=== PATIENT | female | born 1995 | race Caucasian/White ===

== ENCOUNTER 2018-09-27 02:02 | Emergency (ER) | payer OTHER ==
[2018-09-27 02:56] VITALS: BMI 23.8
--- NOTE | 2018-09-27 02:59 | PDOC ---
History of Present Illness - General Chief Complaint: Chest Pain Stated Complaint: CHEST PAIN, ? WEEKS Time Seen by Provider: 09/27/18 02:52 - History of Present Illness Initial Comments: 09/27/18 03:10 The patient is a 22 year old female at unknown weeks gestation with a PMH of PCOS who presents with chest pain. Patient states chest pain is substernal, aching, non-radiating and intermittent. Pain has been occurring intermittently for 5+ years and is often associated with anxiety or depression. Denies any associated lightheadedness, palpations, nausea, diaphoresis. No prior evaluation by cardiology. No family cardiac history. No evaluation to date. LMP in June 2018. The patient denies abdominal pain, diarrhea/constipation, dysuria/hematuria, numbness/tingling, headache, cough, sore throat. NKDA Surgical: none reported Social: denies toxic habits PMD: Dr. Marina Vu M.D. Past History - Past Medical History Allergies/Adverse Reactions: Allergies Allergy/AdvReac Type Severity Reaction Status Date / Time No Known Allergies Allergy Verified 09/27/18 03:15 - Suicide/Smoking/Psychosocial Hx Smoking History: Never smoked Review of Systems - Review of Systems Constitutional: No: Chills, Fever HEENTM: No: Blurred Vision, Double Vision Respiratory: No: Cough, Shortness of Breath Cardiac (ROS): No: Chest Pain, Lightheadedness, Palpitations ABD/GI: No: Constipated, Diarrhea, Nausea, Vomiting *Physical Exam - Vital Signs Last Vital Signs Temp Pulse Resp BP Pulse Ox 97.9 F 69 19 107/60 95 09/27/18 02:15 09/27/18 02:15 09/27/18 02:15 09/27/18 02:15 09/27/18 02:15 - Physical Exam General Appearance: Yes: Nourished, Appropriately Dressed HEENT: positive: Normal Voice, Hearing Grossly Normal Neck: positive: Trachea midline, Supple Respiratory/Chest: positive: Lungs Clear, Normal Breath Sounds, Other ( reproducible anterior chest wall pain) Cardiovascular: positive: S1, S2 Gastrointestinal/Abdominal: positive: Normal Bowel Sounds, Soft Musculoskeletal: negative: CVA Tenderness (R), CVA Tenderness (L) Extremity: positive: Normal Capillary Refill, Normal Inspection Integumentary: positive: Normal Color, Dry, Warm ED Treatment Course - LABORATORY CBC & Chemistry Diagram: 09/27/18 03:40 09/27/18 03:40 Medical Decision Making - Medical Decision Making 09/27/18 03:41 22 year old female at unknown gestation presents with chest pain. Intermittent for 5+ years. Low clinical suspicion for ACS. As patient is and unsure of gestational age will obtain quantatitive HCG, basic labs, and UA ( check for proteinuria). Bedside U/S. Reassess. 09/27/18 04:22 Beside U/S shows IUP WBC 10.9 - likely reactive leukocytosis CMP, B-HCG pending Tylenol IV 09/27/18 05:00 No proteinuria No electrolyte derangement B-HCG pending 09/27/18 05:00 Patient reassessed @ bedside Symptomatically improved 09/27/18 05:22 B-HCG 72,038 09/27/18 05:28 Reassessed patient, comfortable with discharge home. Will refer to OB-Software Validation Technician to establish care. Discharged home w/mother, given return precaution, OB- Software Validation Technician referral and instructions for supportive care. 09/27/18 06:22 09/27/18 06:22 *DC/Admit/Observation/Transfer Diagnosis at time of Disposition: Chest pain - Discharge Dispostion Disposition: HOME Condition at time of disposition: Good Decision to Admit order: No - Referrals Referrals: Marina Vu [Primary Care Provider] - Dominique Olvera MD [Staff Physician] - - Patient Instructions Printed Discharge Instructions: Medications and , Managing Symptoms of , DI for Atypical Chest Pain Additional Instructions: Please make an appointment with the Super[facility] (referral provided) for further evaluation of your You can take Tylenol (up to 4000 mg daily) for your pain. Return to the Emergency Department for any new/worsening/concerning symptoms. - Post Discharge Activity
[2018-09-27 03:58] LABS: BASO % 0.6 % (0-2.0); HEMATOCRIT 40.6 % (32.4-45.2); HEMOGLOBIN 13.5 GM/dL (10.7-15.3); LYMPH % 19.6 % (8-40); MCH 28.8 pg (25.7-33.7); MCHC 33.4 g/dl (32.0-36.0); MEAN CELL VOLUME 86.4 fl (80-96); MEAN PLT VOLUME 8.8 fl (7.5-11.1); MONO % 6.2 % (3.8-10.2); NEUT % 71.6 % (42.8-82.8); PLATELET COUNT 311 K/MM3 (134-434); RBC 4.69 M/mm3 (3.60-5.2); RDW 13.9 % (11.6-15.6); WHITE BLOOD COUNT 10.9 K/mm3 (4.0-10.0)
[2018-09-27] MEDS ORDERED: ACETAMINOPHEN 1000 MG/100 ML VIAL (NON FORMULARY) IVPB ONE (04:21)
[2018-09-27 04:45] LABS: ALK PHOS 82 U/L (45-117); ANION GAP 8 MMOL/L (8-16); BILIRUBIN,TOTAL 0.5 mg/dL (0.2-1); BLOOD UREA NITROGEN 9 mg/dL (7-18); CALCIUM 9.3 mg/dL (8.5-10.1); CHLORIDE 102 mmol/L (98-107); CO2 26 mmol/L (21-32); CREATININE 0.5 mg/dL (0.55-1.3); GLUCOSE,RANDOM 81 mg/dL (74-106); POTASSIUM 4.7 mmol/L (3.5-5.1); SGOT/AST 25 U/L (15-37); SGPT/ALT 22 U/L (13-61); SODIUM 136 mmol/L (136-145); TOT PROT 8.5 g/dl (6.4-8.2)
[2018-09-27] MEDS ORDERED: ACETAMINOPHEN INJECTION 100 ML IVPB ONE (04:54)
[2018-09-27 04:59] LABS: EPI CELLS MODERATE /HPF (FEW); URINE BACTERIA RARE /hpf (NONE SEEN); URINE MUCUS RARE
[2018-09-27 05:51] VITALS: BP 99/48; PULSE 74; TEMP 98.5
--- NOTE | 2018-09-27 05:51 | PDOC ---
Attending Attestation - Resident Resident Name: Lizeth Hensley - HPI HPI: 09/27/18 05:49 see mdm - Physicial Exam PE: 09/27/18 05:49 see mdm - Medical Decision Making 09/27/18 05:49 22F , unknown gestation with acute exacerbation of chronic cp, reproducible, not-pleuritic, no sob, hemoptysis, palpitations acs, pe less likely, consider msk px analgesia re-eval likely discharge
[2018-09-27 12:31] LABS: PH,URINE 8.5 (5.0-8.0); URINE APPEARANCE Clear; URINE BILIRUBIN Negative (<2.0 mg/dL); URINE COLOR Yellow; URINE GLUCOSE (UA) Negative (NEGATIVE); URINE KETONE Negative (NEGATIVE); URINE LEUK ESTERASE Negative (NEGATIVE); URINE NITRITE Negative (NEGATIVE); URINE PROTEIN Negative (NEGATIVE); URINE UROBILINOGEN 0.2 mg/dL (0.2-1.0)
--- NOTE | 2018-09-28 13:51 | EKG ---
Test Reason : Blood Pressure : / mmHG Vent. Rate : 069 BPM Atrial Rate : 069 BPM P-R Int : 148 ms QRS Dur : 072 ms QT Int : 382 ms P-R-T Axes : 038 037 044 degrees QTc Int : 409 ms SINUS RHYTHM WITH MARKED SINUS ARRHYTHMIA NO PREVIOUS ECGS AVAILABLE Confirmed by DAVID MACKENZIE MD ([id number]) on 09/28/2018 1:50:59 PM Referred By: Confirmed By:DAVID MACKENZIE MD
== END 2018-09-27 05:52 | disposition home or self-care (01) ==
LOC: JER 02:02
PROC: 3E033NZ Introduction of Analgesics, Hypnotics, Sedatives into Peripheral Vein, Percutaneous Approach (ICD-10-PCS; principal; 2018-09-27)
PROC: BY49ZZZ Ultrasonography of First Trimester, Single Fetus (ICD-10-PCS; 2018-09-27)
DX: Z3A.00 Weeks of gestation of pregnancy not specified (principal)
CPT/HCPCS: 36415; 80053; 81003; 81015; 84702; 85025; 86850; 86900; 86901; 93005; 93010; 99281-25; J0131

== ENCOUNTER 2018-11-21 19:00 | Emergency (ER) | payer OTHER ==
--- NOTE | 2018-11-21 19:08 | PDOC ---
Rapid Medical Evaluation Time Seen by Provider: 11/21/18 19:06 Medical Evaluation: Allergies Allergy/AdvReac Type Severity Reaction Status Date / Time No Known Allergies Allergy Verified 09/27/18 03:15 11/21/18 19:06 I have performed a brief in-person evaluation of this patient. The patient presents with a chief complaint of: left breast ecchymosis lower abdominal cramping 19wks Pertinent physical exam findings: Gravid abdomen. +BS. Non tender I have ordered the following: labs, urine The patient will proceed to the ED for further evaluation. Discharge Disposition - Diagnosis Abdominal cramping affecting - Referrals - Patient Instructions - Post Discharge Activity
[2018-11-21 19:10] VITALS: BP 131/68; PULSE 93; TEMP 98.2; BMI 24.7
[2018-11-21 20:27] LABS: BASO % 0.4 % (0-2.0); EOS % 1.1 % (0-4.5); HEMATOCRIT 34.2 % (32.4-45.2); HEMOGLOBIN 11.9 GM/dL (10.7-15.3); MCHC 34.8 g/dl (32.0-36.0); MEAN CELL VOLUME 86.2 fl (80-96); MEAN PLT VOLUME 8.1 fl (7.5-11.1); MONO % 7.3 % (3.8-10.2); NEUT % 68.2 % (42.8-82.8); PLATELET COUNT 255 K/MM3 (134-434); RBC 3.96 M/mm3 (3.60-5.2); RDW 13.4 % (11.6-15.6); WHITE BLOOD COUNT 11.1 K/mm3 (4.0-10.0)
[2018-11-21 21:25] LABS: ANION GAP 7 MMOL/L (8-16); BLOOD UREA NITROGEN 8 mg/dL (7-18); CALCIUM 8.9 mg/dL (8.5-10.1); CHLORIDE 109 mmol/L (98-107); CO2 23 mmol/L (21-32); CREATININE 0.6 mg/dL (0.55-1.3); GLUCOSE,RANDOM 128 mg/dL (74-106); POTASSIUM 4.1 mmol/L (3.5-5.1); SODIUM 139 mmol/L (136-145)
[2018-11-21 21:43] LABS: URINE APPEARANCE CLEAR; URINE BILIRUBIN NEGATIVE (<2.0 mg/dL); URINE COLOR LTYELLOW; URINE GLUCOSE (UA) 1+ (NEGATIVE); URINE KETONE NEGATIVE (NEGATIVE); URINE LEUK ESTERASE NEGATIVE (NEGATIVE); URINE NITRITE NEGATIVE (NEGATIVE); URINE PROTEIN NEGATIVE (NEGATIVE); URINE UROBILINOGEN NEGATIVE mg/dL (0.2-1.0)
--- NOTE | 2018-11-21 22:12 | PDOC ---
History of Present Illness - General Chief Complaint: Pain, Acute Stated Complaint: ABDOMINAL/BREAST PAIN/19 WKS Time Seen by Provider: 11/21/18 19:06 - History of Present Illness Initial Comments: 11/21/18 22:10 22-year-old 19 week gravid female presents for 1 day of abdominal cramping no discharge Past History - Past Medical History Allergies/Adverse Reactions: Allergies Allergy/AdvReac Type Severity Reaction Status Date / Time No Known Allergies Allergy Verified 09/27/18 03:15 Home Medications: Ambulatory Orders NK [No Known Home Medication] 11/21/18 Prenat 115/Iron Fum/Folic/Dss [ 19 Tablet] 1 each PO DAILY 11/21/18 COPD: No - Immunization History Immunization Up to Date: Yes - Suicide/Smoking/Psychosocial Hx Smoking History: Never smoked Hx Alcohol Use: No Drug/Substance Use Hx: No Review of Systems - Review of Systems ABD/GI: Yes: Abdominal cramping *Physical Exam - Vital Signs Last Vital Signs Temp Pulse Resp BP Pulse Ox 98.2 F 93 H 16 131/68 97 11/21/18 19:08 11/21/18 19:08 11/21/18 19:08 11/21/18 19:08 11/21/18 19:08 - Physical Exam Comments: 11/21/18 22:11 HEAD: NC/AT EYES: Conjuntiva clear Ears: Canals and TM's normal NOSE: No d/c THROAT: Moist mucous membrances, oral pharanx clear, uvula midline NECK: Supple without adenopathy CARDIAC: S1 S2 LUNGS: CTA Full and Equal breath sounds ABDOMEN: Soft NT ND gravid uterus MS: Full ROM in all joints without edema NEUROLOGIC: No gross sensory or motor deficits, NVID SKIN: Normal color and temperature no lesions or rashes Moderate Sedation - Procedure Monitoring Vital Signs: Procedure Monitoring Vital Signs Temperature 98.2 F 11/21/18 19:08 Pulse Rate 93 H 11/21/18 19:08 Respiratory Rate 16 11/21/18 19:08 Blood Pressure 131/68 11/21/18 19:08 O2 Sat by Pulse Oximetry (%) 97 11/21/18 19:08 ED Treatment Course - LABORATORY CBC & Chemistry Diagram: 11/21/18 20:15 11/21/18 20:15 - ADDITIONAL ORDERS Additional order review: Laboratory Results 11/21/18 11/21/18 21:25 20:15 Sodium 139 Potassium 4.1 Chloride 109 H Carbon Dioxide 23 Anion Gap 7 L BUN 8 Creatinine 0.6 Creat Clearance w eGFR > 60 Random Glucose 128 H Calcium 8.9 Beta HCG, Quant 37887.0 Urine Color Ltyellow Urine Appearance Clear Urine pH 6.0 D Ur Specific [place] 1.015 Urine Protein Negative Urine Glucose (UA) 1+ H Urine Ketones Negative Urine Blood Negative Urine Nitrite Negative Urine Bilirubin Negative Urine Urobilinogen Negative Ur Leukocyte Esterase Negative 11/21/18 20:15 RBC 3.96 MCV 86.2 MCHC 34.8 RDW 13.4 MPV 8.1 Neutrophils % 68.2 Lymphocytes % 23.0 Monocytes % 7.3 Eosinophils % 1.1 Basophils % 0.4 Medical Decision Making - Medical Decision Making 11/21/18 22:11 We'll transfer up to labor and delivery for monitoring and further evaluation and treatment options *DC/Admit/Observation/Transfer Diagnosis at time of Disposition: Abdominal cramping affecting - Referrals - Patient Instructions - Post Discharge Activity
== END 2018-11-21 22:26 | disposition home or self-care (01) ==
LOC: JERFT 19:00
DX: O26.892 Other specified pregnancy related conditions, second trimester (principal); Z3A.19 19 weeks gestation of pregnancy; R10.2 Pelvic and perineal pain
CPT/HCPCS: 36415; 80048; 81003; 84702; 85025; 87086; 87186; 99281-25

== ENCOUNTER 2019-02-18 07:20 | Inpatient (IN) | payer OTHER ==
[2019-02-18] MEDS ORDERED: ACETAMINOPHEN 1000 MG/100 ML VIAL (NON FORMULARY) IVPB ONE (07:47)
[2019-02-18 07:56] VITALS: BMI 29.0
[2019-02-18] MEDS ORDERED: ACETAMINOPHEN INJECTION 100 ML IVPB ONE (07:57)
--- NOTE | 2019-02-18 08:21 | PDOC ---
History of Present Illness - General Chief Complaint: Pain, Acute Stated Complaint: ABDOMINAL PAIN Time Seen by Provider: 02/18/19 07:35 History Source: Patient Exam Limitations: No Limitations - History of Present Illness Initial Comments: 02/18/19 08:15 23 yo 30 weeks female pmh PCOS and recently diagnosed gestational diabetes (02/12/2019, RN POOL followed at [address] [place]) Presents to the ED from L&D with sudden onset suprapubic abdominal pain that began at 11 pm last night. L&D US shows 30 week, 4 day gestation, FHR 144, with short cervix 1.8 cm noted and UA shows 2+ LE with WBCs, trace proteins and no blood. Pt states the pain started suddenly last night, described as cramping, non radiating and constant. Admits to new urinary frequency but denies pain or order with urination, vaginal discharge, changes in bowel habits, new back pain, F/C/N/V, PARRY, CP or SOB Past History - Past Medical History Allergies/Adverse Reactions: Allergies Allergy/AdvReac Type Severity Reaction Status Date / Time No Known Allergies Allergy Verified 02/18/19 03:33 Home Medications: Ambulatory Orders Prenat 115/Iron Fum/Folic/Dss [ 19 Tablet] 1 each PO DAILY 11/21/18 Ferrous Sulfate [Feosol] 325 mg PO DAILY 02/18/19 Progesterone, Micronized [Progesterone] 200 mg VG DAILY 02/18/19 COPD: No Other medical history: PCOS - Immunization History Immunization Up to Date: Yes - Suicide/Smoking/Psychosocial Hx Smoking History: Unknown if ever smoked Hx Alcohol Use: No Drug/Substance Use Hx: No Review of Systems - Review of Systems Constitutional: No: Chills, Fever Respiratory: No: Shortness of Breath Cardiac (ROS): No: Chest Pain ABD/GI: No: Constipated, Diarrhea, Nausea, Vomiting : Yes: Frequency, Flank Pain. No: Burning, Dysuria, Discharge, Hematuria, Incontinence Musculoskeletal: No: Back Pain Neurological: No: Headache, Numbness, Tingling, Weakness *Physical Exam - Vital Signs Last Vital Signs Temp Pulse Resp BP Pulse Ox 98.0 F 100 H 17 111/76 100 02/18/19 07:41 02/18/19 07:41 02/18/19 07:41 02/18/19 07:41 02/18/19 07:41 - Physical Exam General Appearance: Yes: Nourished, Appropriately Dressed, Moderate Distress ( due to lower quadrant abdominal pain) HEENT: positive: EOMI, ISABEL, Normal Voice, Hearing Grossly Normal Neck: positive: Supple. negative: Carotid bruit, Tender midline Respiratory/Chest: positive: Lungs Clear, Normal Breath Sounds, Accessory Muscle Use. negative: Chest Tender, Respiratory Distress Cardiovascular: positive: Regular Rhythm, Regular Rate, S1, S2. negative: Edema , JVD, Murmur Vascular Pulses: Dorsalis-Pedis (R): 4+, Doralis-Pedis (L): 4+ Female Pelvic Exam: positive: other (deferred to OB) Gastrointestinal/Abdominal: positive: Normal Bowel Sounds, Soft, Tenderness ( bilateral lower quadrant, worse on the right), Other (rovsings positive). negative: Pulsatile Mass, Distended, Guarding Musculoskeletal: positive: Normal Inspection, CVA Tenderness (right) Extremity: positive: Normal Capillary Refill, Normal Inspection, Normal Range of Motion Integumentary: positive: Normal Color, Dry, Warm Neurologic: positive: Fully Oriented, Alert, Normal Mood/Affect, Normal Response , Motor Strength 5/5. negative: Numbness, Sensory Deficit, Confused, Disoriented ED Treatment Course - LABORATORY CBC & Chemistry Diagram: 02/18/19 07:06 02/18/19 07:06 - Medications Given in the ED: ED Medications Discontinued Medications Generic Name Dose Route Start Last Admin Trade Name Freq PRN Reason Stop Dose Admin Acetaminophen 1,000 mg 02/18/19 07:47 02/18/19 08:03 Ofirmev Injection - IVPB 02/18/19 07:48 1,000 mg ONCE ONE Administration Medical Decision Making - Medical Decision Making 02/18/19 08:15 23 yo 30 weeks female pmh PCOS and recently diagnosed gestational diabetes (02/12/2019, RN POOL followed at [facility]) Presents to the ED from L&D with sudden onset suprapubic abdominal pain that began at 11 pm last night. L&D US shows 30 week, 4 day gestation, FHR 144, with short cervix 1.8 cm noted and UA shows 2+ LE with WBCs, trace proteins and no blood. Pt states the pain started suddenly last night, described as cramping, non radiating and constant. Admits to new urinary frequency but denies pain or order with urination, vaginal discharge, changes in bowel habits, new back pain, F/C/N/V, PARRY, CP or SOB Vitals WNL AOX3, pt is in moderate distress due to pain and given IV tylenol DDX INLT: renal stone, appendicitis, pyelo, UTI/cystitis, labor CBC shows elevated WBC over 19, blood work otherwise normal abdominal US done to attempt to r/o appendicitis however appendix not visualized. Of note, pt found to have gallstones but due to location of pain, very unlikely to be the etiology of pain today MRI ordered and approved OB and Gen Surg consulted Dr. Boogie from OB assess pt, states if MRI shows appendicitis or other surgical concern, Gen Surg will need to be involved, otherwise, pt will be admitted to OB unit and treated for UTI and pain MRI appendix was difficult to visualize but no signs of appendicitis visualized Dr. Manriquez is now clinic receptionist for OB, case discussed and agrees to have pt admitted to OB unit. *DC/Admit/Observation/Transfer Diagnosis at time of Disposition: Pain UTI (urinary tract infection) Qualifiers: Urinary tract infection type: acute cystitis Hematuria presence: without hematuria Qualified Code(s): N30.00 - Acute cystitis without hematuria - Discharge Dispostion Disposition: TRANSFER ACUTE CARE/OTHER HOSP Condition at time of disposition: Stable Decision to Admit order: Yes - Referrals - Patient Instructions - Post Discharge Activity
[2019-02-18 08:27] LABS: BASO % 0.5 % (0-2.0); EOS % 0.1 % (0-4.5); HEMATOCRIT 36.7 % (32.4-45.2); HEMOGLOBIN 12.1 GM/dL (10.7-15.3); LYMPH % 8.5 % (8-40); MCHC 32.9 g/dl (32.0-36.0); MEAN CELL VOLUME 87.9 fl (80-96); MEAN PLT VOLUME 8.3 fl (7.5-11.1); NEUT % 83.9 % (42.8-82.8); PLATELET COUNT 220 K/MM3 (134-434); RBC 4.17 M/mm3 (3.60-5.2); RDW 13.9 % (11.6-15.6); WHITE BLOOD COUNT 19.6 K/mm3 (4.0-10.0)
[2019-02-18 08:50] LABS: INR 1.02 (0.83-1.09)
[2019-02-18 08:53] LABS: ACTIVATED PTT 28.2 SECONDS (25.2-36.5)
[2019-02-18 09:29] LABS: ALBUMIN 2.5 g/dl (3.4-5.0); ALK PHOS 147 U/L (45-117); ANION GAP 8 MMOL/L (8-16); BILIRUBIN,TOTAL 0.5 mg/dL (0.2-1); BLOOD UREA NITROGEN 5 mg/dL (7-18); CALCIUM 8.5 mg/dL (8.5-10.1); CHLORIDE 109 mmol/L (98-107); CO2 21 mmol/L (21-32); CREATININE 0.5 mg/dL (0.55-1.3); GLUCOSE,RANDOM 94 mg/dL (74-106); LIPASE 88 U/L (73-393); POTASSIUM 3.8 mmol/L (3.5-5.1); SGOT/AST 13 U/L (15-37); SGPT/ALT 17 U/L (13-61); SODIUM 138 mmol/L (136-145); TOT PROT 6.3 g/dl (6.4-8.2)
[2019-02-18] MEDS ORDERED: CEFTRIAXONE 1 GM in DEXTROSE 5%-WATER - 100 ML IVPB ONE (09:33)
--- NOTE | 2019-02-18 09:47 | PDOC ---
Attending Attestation - Resident Resident Name: Cruzito Morrison - ED Attending Attestation I have performed the following: I have examined & evaluated the patient, The case was reviewed & discussed with the resident, I agree w/resident's findings & plan - HPI HPI: 02/18/19 09:42 Healthy 23-year-old female third trimester gestation at about 30 weeks resents with suprapubic discomfort that began at 11 PM last night. Otherwise uneventful except for borderline gestational diabetes, began having mild suprapubic discomfort last night that has been constant since onset, but progressive in severity. no n/v/diarrhea, + new urinary urgency without dysuria. no cramping/bleeding. Seen at L+D prior to ED eval and cleared but sent for further workup of sxs. U/ S upstairs showed normal IUP at 30wks 4 days. - Physicial Exam PE: 02/18/19 09:45 Afebrile. Mild to moderate distress secondary to localized suprapubic pain Abdomen is gravid, soft and nondistended. Tender with guarding in the suprapubic region and right middle/right lower abdomen, positive rebound. Pelvic deferred and performed on L&D - Medical Decision Making 02/18/19 09:46 23-year-old female 30 weeks gestation with progressive lower abdominal pain and some peritoneal findings on examination. Cleared from OB perspective, ultrasound is within normal limits Urinalysis sent from upstairs showed 41 white blood cells and positive leuk esterase, suggestive of UTI. Pain and exam seem out of proportion to an early cystitis. Question superimposed kidney stone. Consider appendicitis or colitis Check labs, will need more imaging. Start with renal/appendix ultrasound, may need MRI. Heart Score/ECG Review #1 ECG reviewed & interpreted by me at: 08:08 General ECG Interpretation: Sinus Rhythm, Normal Rate (104), Normal Intervals ( qtc 433), No acute ischemic changes
--- NOTE | 2019-02-18 11:13 | EKG ---
Test Reason : Blood Pressure : / mmHG Vent. Rate : 104 BPM Atrial Rate : 104 BPM P-R Int : 132 ms QRS Dur : 068 ms QT Int : 330 ms P-R-T Axes : 022 004 018 degrees QTc Int : 433 ms SINUS TACHYCARDIA MINIMAL VOLTAGE CRITERIA FOR LVH, MAY BE NORMAL VARIANT BORDERLINE ECG WHEN COMPARED WITH ECG OF 27-SEP-2018 02:16, VENT. RATE HAS INCREASED BY 35 BPM Confirmed by JACKIE RANGEL, JEROD ([id number]) on 02/18/2019 11:12:38 AM Referred By: Confirmed By:JEROD MEJIA MD
[2019-02-18] MEDS ORDERED: CEFTRIAXONE 1 GM/50 ML BAG ONE (11:46)
--- NOTE | 2019-02-18 14:35 | HP ---
Past Medical History - Admission Chief Complaint: Lower abdominal pain History of Present Illness: 23yo @ 30.4wks who presents with one day of intense lower abdominal pain and pressure. No VB/LOF. Denies menstrual cramping. No fevers/chills. No dysuria. No nausea/vomiting. Pain started at 11pm, no relief with Tylenol. Per pt, recently diagnosed with GDM. Seen on L&D Triage at 3AM today, cleared and sent to the ER for further evaluation ER labs notable for elevated WBC 19 with left shift, no bandemia. Normal CMP. UA with 2+ leuks, 41 WBC. Normal OB sono, unable to see appendix. Denies Tob/EtOH/drug use. History Source: Patient Limitations to Obtaining History: No Limitations - Past Medical History INVESTMENT OFFICER: No: Alzheimer's, CVA, Dementia, Migraine, Multiple Sclerosis, Peripheral Neuropathy, Parkinson's, Seizure, Syncope, TIA, Vertigo, Other Cardiovascular: No: AFIB, Aneurysm, Aortic Insufficiency, Aortic Stenosis, CAD, CHF, Deep Vein Thrombosis, HTN, Hyperlipdemia, FL, Mitral Insufficiency, Mitral Stenosis, Murmur, Pulmonary Hypertension, Other Pulmonary: No: Asthma, Bronchitis, Cancer, COPD, O2 Dependent, Pneumonia, Previously Intubated, Pulmonary Embolus, Pulmonary Fibrosis, Sleep Apnea, Other ...: 1 ...Para: 0 ... Weeks Gestation by Dates: 304 - Past Surgical History Past Surgical History: Yes: None Hx Myomectomy: No Hx Transabdominal Cerclage: No - Smoking History Smoking history: Never smoked Have you smoked in the past 12 months: No - Alcohol/Substance Use Hx Alcohol Use: No History of Substance Use: reports: None - Social History Usual Living Arrangement: Yes: Alone ADL: Independent History of Recent Travel: No Home Medications - Allergies Allergies/Adverse Reactions: Allergies Allergy/AdvReac Type Severity Reaction Status Date / Time No Known Allergies Allergy Verified 02/18/19 03:33 - Home Medications Home Medications: Ambulatory Orders Prenat 115/Iron Fum/Folic/Dss [ 19 Tablet] 1 each PO DAILY 11/21/18 Ferrous Sulfate [Feosol] 325 mg PO DAILY 02/18/19 Progesterone, Micronized [Progesterone] 200 mg VG DAILY 02/18/19 Review of Systems - Review of Systems Constitutional: denies: No Symptoms, Chills, Diaphoresis, Fever, Lethargy, Loss of Appetite, Malaise, Night Sweats, Unintentional Wgt. Loss, Weakness, Other Cardiovascular: denies: No Symptoms, Chest Pain, Edema, Palpitations, Shortness of Breath, Other Respiratory: denies: No Symptoms, Cough, Exercise Intolerance, Hemoptysis, Orthopnea, PND, Snoring, SOB, SOB on Exertion, Wheezing, Other Gastrointestinal: reports: Abdominal Pain. denies: No Symptoms, Bloating, Constipation, Diarrhea, Dysphagia, Indigestion, Melena, Nausea, Rectal Bleeding , Vomiting, Vomiting Blood, Other Genitourinary: denies: No Symptoms, Burning, Discharge, Dysuria, Flank Pain, Frequency, Hematuria, Incontinence, Lesions, Menses, Pain, Testicular Mass, Testicular Pain, Testicular Swelling, Urgency, Vaginal Bleeding, Other Physical Exam - Maternity Vital Signs: Vital Signs Temperature 98.0 F 02/18/19 07:41 Pulse Rate 100 H 02/18/19 07:41 Respiratory Rate 17 02/18/19 07:41 Blood Pressure 111/76 02/18/19 07:41 O2 Sat by Pulse Oximetry (%) 100 02/18/19 07:41 Constitutional: Yes: Well Nourished, No Distress, Calm Eyes: Yes: WNL, Conjunctiva Clear, EOM Intact HENT: Yes: WNL, Atraumatic, Normocephalic - Abdominal Exam/OB Number of Fetuses: Single - Vaginal Exam/OB Vaginal Bleediing: No Speculum Exam: No - Physical Exam Edema: No ...Motor Strength: WNL Psychiatric: Yes: WNL - Labs Lab Results: CBC, BMP 02/18/19 07:06 02/18/19 07:06 Imaging - Results Ultrasound: Report Reviewed MRI: Pending Assessment/Plan 23yo @ 30.4wks here with lower abdominal pain, elevated WBC, concern for Pyelo Admit to Antepartum IV Rocephin x 24 hours Urine culture CBC in AM to trend WBC Awaiting final read from MRI, if concerning for appendix, will need Gen Surg input Tylenol prn pain. NST BID Dominique Olvera MD
--- NOTE | 2019-02-18 15:52 | CONSULT ---
- Consultation REQUESTING PROVIDER: Jose RANGEL CONSULT REQUEST: We have been asked to surgically evaluate this patient for lower abdominal pain. PCP: HISTORY OF PRESENT ILLNESS: LUISITO who is a 29 y/o female w/acute onset lower abdominal pain w/possible radiation to the RLQ; she has no n/v; she feels hungry and wants to eat; pain is ? crampy ? and not improved or made worse by anything. 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 PMHx: none PSHx: none Home Medications Medication Instructions Recorded Prenat 115/Iron Fum/Folic/Dss 1 each PO DAILY 11/21/18 [ 19 Tablet] Ferrous Sulfate [Feosol] 325 mg PO DAILY 02/18/19 Progesterone, Micronized 200 mg VG DAILY 02/18/19 [Progesterone] Allergies Allergy/AdvReac Type Severity Reaction Status Date / Time No Known Allergies Allergy Verified 02/18/19 03:33 REVIEW OF SYSTEMS: CONSTITUTIONAL: Absent: fever, chills, diaphoresis, generalized weakness, malaise, loss of appetite, weight change CARDIOVASCULAR: Absent: chest pain, syncope, palpitations, irregular heart rate, lightheadedness , peripheral edema RESPIRATORY: Absent: cough, shortness of breath, dyspnea with exertion, wheezing, stridor, hemoptysis GASTROINTESTINAL: Absent: abdominal pain, abdominal distension, nausea, vomiting, diarrhea, constipation, melena, hematochezia GENITOURINARY: Absent: dysuria, frequency, urgency, hesitancy, hematuria, flank pain, genital pain MUSCULOSKELETAL: Absent: myalgia, arthralgia, joint swelling, back pain, neck pain SKIN: Absent: rash, itching, pallor HEMATOLOGIC/IMMUNOLOGIC: Absent: easy bleeding, easy bruising, lymphadenopathy NEUROLOGIC: Absent: headache, focal weakness, paresthesias, dizziness, unsteady gait, seizure, mental status changes, bladder or bowel incontinence PSYCHIATRIC: Absent: anxiety, depression, suicidal or homicidal ideation, hallucinations. PHYSICAL EXAM: GENERAL: Awake, alert, and fully oriented, in slight acute distress. HEAD: Normal with no signs of trauma. EYES: sclera anicteric, conjunctiva clear. NECK: Normal ROM, supple without lymphadenopathy, JVD, or masses. ABDOMEN: Soft, gravid and tender in the SP area, not distended, voluntary guarding, no rebound, no masses. No organomegaly. No scars; no hernias. No clear cut Dysart sign/RUQ ttp.. MUSCULOSKELETAL: Normal ROM at all joints. No bony deformities or tenderness. No CVA tenderness. UPPER EXTREMITIES: 2+ pulses, warm, well-perfused. No cyanosis. Cap refill <2 seconds. No peripheral edema. LOWER EXTREMITIES: 2+ pulses, warm, well-perfused. No calf tenderness. No peripheral edema. NEUROLOGICAL: Normal speech, gait not observed. PSYCH: Cooperative. Good eye contact. Appropriate mood and affect. SKIN: Warm, dry, normal turgor, no rashes or lesions noted. Vital Signs Temperature 98.0 F 02/18/19 07:41 Pulse Rate 100 H 02/18/19 07:41 Respiratory Rate 17 02/18/19 07:41 Blood Pressure 111/76 02/18/19 07:41 O2 Sat by Pulse Oximetry (%) 100 02/18/19 07:41 Lab Results WBC 19.6 K/mm3 (4.0-10.0) H 02/18/19 07:06 RBC 4.17 M/mm3 (3.60-5.2) 02/18/19 07:06 Hgb 12.1 GM/dL (10.7-15.3) 02/18/19 07:06 Hct 36.7 % (32.4-45.2) 02/18/19 07:06 MCV 87.9 fl (80-96) 02/18/19 07:06 MCHC 32.9 g/dl (32.0-36.0) 02/18/19 07:06 RDW 13.9 % (11.6-15.6) 02/18/19 07:06 Plt Count 220 K/MM3 (134-434) 02/18/19 07:06 Sodium 138 mmol/L (136-145) 02/18/19 07:06 Potassium 3.8 mmol/L (3.5-5.1) 02/18/19 07:06 Chloride 109 mmol/L (98-107) H 02/18/19 07:06 Carbon Dioxide 21 mmol/L (21-32) 02/18/19 07:06 Anion Gap 8 MMOL/L (8-16) 02/18/19 07:06 BUN 5 mg/dL (7-18) L 02/18/19 07:06 Creatinine 0.5 mg/dL (0.55-1.3) L 02/18/19 07:06 Random Glucose 94 mg/dL (74-106) 02/18/19 07:06 Calcium 8.5 mg/dL (8.5-10.1) 02/18/19 07:06 Blood Type AB POSITIVE 02/18/19 07:06 Antibody Screen Negative 02/18/19 07:06 INR 1.02 (0.83-1.09) 02/18/19 07:06 MRI and other imaging w/u reviewed Labs reviewed. IMP: doubt acute appendicitis based on hx./PE/imaging findings PLAN: Will f/u as needed; suggest admit for observation. Praveen Chapman MD FACS
[2019-02-18] MEDS ORDERED: AMPICILLIN - 2 GM in SODIUM CHLORIDE 100 ML IVPB ONE (19:52)
[2019-02-18] MEDS ORDERED: BETAMET ACET/BETAMET NA PH 30 MG/5 ML VIAL IM ONE (19:53)
[2019-02-18] MEDS ORDERED: BETAMET ACET/BETAMET NA PH 30 MG/5 ML VIAL ONE (20:20)
[2019-02-18] MEDS ORDERED: MAGNESIUM SULFATE IN WATER 4 GM/50 ML IVPB IVPB ONE (20:20)
[2019-02-18] MEDS ORDERED: AMPICILLIN SODIUM 2 GM VIAL ONE (20:20)
--- NOTE | 2019-02-18 20:48 | PN ---
Progress Note (short form) - Note Progress Note: 23 yo , @ 30.5 weeks gestation, EDC 04/25/19, admitted from ER due to abdominal pain. She had an MRI and abdominal ultrasound done; there was no evidence of appendicitis. She had an elevated white count and was admitted with diagnosis of Pyelonephritis. care was complicated by short cervix and was prescribed intravaginal progesterone. I saw patient at 19:50 on the floor; she was in severe discomfort. FHR : Reassuring [place] : + irritability VE : 4/100/-1 A / P : IUP @ 30 weeks labor IVF bolus Magnesium sulfate Betamethasone Ampicillin Transfer to [facility]
[2019-02-18] MEDS ORDERED: MAGNESIUM SULFATE 20GM/500ML - 20 GM/500 ML INFUS.BAG ONE (20:49)
[2019-02-18] MEDS ORDERED: MAGNESIUM SULF 50% (8.12 MEQ/2 ML-1 GM VIAL) IVPB ONE (20:53)
[2019-02-18] MEDS ORDERED: MAGNESIUM SULFATE 20GM/500ML - 20 GM/500 ML INFUS.BAG IVPB SCH (21:00)
[2019-02-18] MEDS ORDERED: ELECTROLYTE-148 SOLN 1,000 ML IV SCH ×4 (21:00→22:00)
[2019-02-18 22:14] VITALS: BP 114/73; PULSE 116; TEMP 98.5
== END 2019-02-18 21:30 | disposition short-term general hospital (02) | DRG 566 ==
LOC: JER 07:20 → JERBED 15:57 → J3W 19:23 → JLDR 20:22
PROVIDERS: ADMIT Obstetrics & Gynecology; ATTEND Obstetrics & Gynecology
DX: O23.03 Infections of kidney in pregnancy, third trimester (principal); O60.03 Preterm labor without delivery, third trimester; Z3A.30 30 weeks gestation of pregnancy; N10 Acute pyelonephritis; O24.419 Gestational diabetes mellitus in pregnancy, unspecified control; O26.873 Cervical shortening, third trimester
CPT/HCPCS: 36415; 59025; 74181-TC; 76700-TC; 76815; 76856-TC; 80053; 81003; 82962; 83690; 84702; 85025; 85610; 85730; 86850; 86900; 86901; 87086; 93005; 93010; 96372; 99285-25; J0131

== ENCOUNTER 2024-09-10 10:52 | Emergency (ER) | payer OTHER ==
[2024-09-10 10:57] VITALS: BMI 25.8
[2024-09-10] MEDS ORDERED: ACETAMINOPHEN INJECTION 100 ML ONE (11:53)
[2024-09-10] MEDS ORDERED: FAMOTIDINE 20 MG/50 ML IVPB 20 MG/50 ML MG IVPB ONE (11:53)
[2024-09-10] MEDS: FAMOTIDINE 20 MG/50 ML IVPB 20 MG/50 ML MG IVPB ONE (11:58)
[2024-09-10] MEDS: ACETAMINOPHEN 1000 MG/100 ML BAG IVPB ONE (11:58)
[2024-09-10 12:10] LABS: BASO % 0.6 % (0-2.0); EOS % 2.7 % (0-4.5); HEMATOCRIT 42.6 % (32.4-45.2); LYMPH % 26.3 % (8-40); MCH 27.2 pg (25.7-33.7); MCHC 32.8 g/dl (32.0-36.0); MEAN CELL VOLUME 82.8 fl (80-96); MEAN PLT VOLUME 7.5 fl (7.5-11.1); MONO % 6.4 % (3.8-10.2); PLATELET COUNT 392 10^3/uL (134-434); RBC 5.14 M/mm3 (3.60-5.2); RDW 13.9 % (11.6-15.6); WHITE BLOOD COUNT 11.1 K/mm3 (4.0-10.0)
[2024-09-10 12:38] LABS: POTASSIUM 4.6 mmol/L (3.5-5.1)
[2024-09-10 12:41] LABS: CALCIUM 9.6 mg/dL (8.5-10.1)
[2024-09-10 12:42] LABS: BLOOD UREA NITROGEN 12.8 mg/dL (7-18)
[2024-09-10 12:45] LABS: CREATININE 0.7 mg/dL (0.55-1.3)
[2024-09-10 12:47] LABS: BILIRUBIN,TOTAL 0.8 mg/dL (0.2-1); TOT PROT 8.2 g/dl (6.4-8.2)
[2024-09-10] MEDS ORDERED: KETOROLAC TROMETHAMINE 30 MG/1 ML VIAL ONE (12:51)
[2024-09-10] MEDS: KETOROLAC TROMETHAMINE 30 MG/1 ML VIAL IVPUSH ONE (12:56)
[2024-09-10 13:19] LABS: URINE APPEARANCE CLEAR; URINE BILIRUBIN NEGATIVE (NEGATIVE); URINE COLOR YELLOW; URINE GLUCOSE (UA) NEGATIVE (NEGATIVE); URINE KETONE NEGATIVE (NEGATIVE); URINE LEUK ESTERASE NEGATIVE (NEGATIVE); URINE NITRITE NEGATIVE (NEGATIVE); URINE PROTEIN NEGATIVE (NEGATIVE); URINE UROBILINOGEN 0.2 mg/dL (0.2-1.0)
[2024-09-10 16:24] VITALS: BP 108/70; PULSE 72; RESP 18; TEMP 98.1
== END 2024-09-10 15:13 | disposition home or self-care (01) ==
LOC: JER 10:52
PROC: 3E033GC Introduction of Other Therapeutic Substance into Peripheral Vein, Percutaneous Approach (ICD-10-PCS; principal; 2024-09-10)
PROC: 3E033NZ Introduction of Analgesics, Hypnotics, Sedatives into Peripheral Vein, Percutaneous Approach (ICD-10-PCS; 2024-09-10)
PROC: 3E0333Z Introduction of Anti-inflammatory into Peripheral Vein, Percutaneous Approach (ICD-10-PCS; 2024-09-10)
DX: R07.2 Precordial pain (principal); R10.13 Epigastric pain; M54.6 Pain in thoracic spine; R42 Dizziness and giddiness
CPT/HCPCS: 36415; 80053; 81003; 83690; 84484; 84703; 85025; 93005; 93010; 96365; 96375; 99284-25; J0131

== ENCOUNTER 2024-09-15 01:52 | Emergency (ER) | payer OTHER ==
[2024-09-15 01:59] VITALS: BP 126/83; PULSE 85; RESP 17; TEMP 97.8; BMI 30.2
[2024-09-15] MEDS ORDERED: LORazepam 1 MG TABLET ONE (02:43)
[2024-09-15] MEDS: LORazepam 1 MG TABLET PO ONE (02:48)
[2024-09-15] MEDS ORDERED: IBUPROFEN 400 MG TABLET (FP) PO ONE (03:59)
[2024-09-15] MEDS: IBUPROFEN 400 MG TABLET (FP) PO ONE (04:04)
== END 2024-09-15 05:52 | disposition home or self-care (01) ==
LOC: JER 01:52
DX: R07.9 Chest pain, unspecified (principal)
CPT/HCPCS: 71046-TC-FY; 93005; 93010; 99284-25